=== PATIENT | male | born 1995 | race African-American/Black ===

== ENCOUNTER 2017-06-29 12:46 | Emergency (ER) | payer MEDICAID, OTHER ==
[~2017-06-29] VITALS: Ht 167.6 cm; Wt 90.0 kg
[~2017-06-29 12:46] MED LIST: ALBU8.5H3 IH; BECL8.7A6 IH; MONT10TA21 PO
[2017-06-29] MEDS ORDERED: LIDOCAINE HCL 1% 10 ML VIAL INJ ONE (13:15)
[2017-06-29 14:04] VITALS: BP 130/88
[2017-06-29] MEDS ORDERED: BACITRACIN 0.9 GM PACKET OINTMENT TP ONE (14:15)
== END 2017-06-29 14:30 | disposition home or self-care (01) ==
LOC: EMS 12:48
DX: S61.210A Laceration without foreign body of right index finger without damage to nail, initial encounter (principal); J45.909 Unspecified asthma, uncomplicated; F12.90 Cannabis use, unspecified, uncomplicated; R03.0 Elevated blood-pressure reading, without diagnosis of hypertension; Z88.5 Allergy status to narcotic agent; W45.8XXA Other foreign body or object entering through skin, initial encounter; Y93.89 Activity, other specified; Y92.89 Other specified places as the place of occurrence of the external cause; Y99.8 Other external cause status
CPT/HCPCS: 12001; 99283; J3490

== ENCOUNTER 2017-07-01 10:12 | Emergency (ER) | payer MEDICAID ==
[~2017-07-01] VITALS: Ht 167.6 cm; Wt 89.5 kg
[2017-07-01 11:11] VITALS: BP 155/111
== END 2017-07-01 11:31 | disposition home or self-care (01) ==
LOC: EMS 10:13
DX: Z48.00 Encounter for change or removal of nonsurgical wound dressing (principal); J45.909 Unspecified asthma, uncomplicated; F12.90 Cannabis use, unspecified, uncomplicated; Z88.5 Allergy status to narcotic agent
CPT/HCPCS: 99281

== ENCOUNTER 2017-07-06 08:40 | Emergency (ER) | payer MEDICAID ==
[~2017-07-06] VITALS: Ht 167.6 cm; Wt 90.9 kg
[~2017-07-06 08:40] MED LIST changes: -BECL8.7A6 IH
[2017-07-06 08:58] VITALS: BP 149/96
== END 2017-07-06 09:47 | disposition home or self-care (01) ==
LOC: EMS 08:41
DX: Z48.02 Encounter for removal of sutures (principal); S61.210D Laceration without foreign body of right index finger without damage to nail, subsequent encounter; J45.909 Unspecified asthma, uncomplicated; Z88.5 Allergy status to narcotic agent; X58.XXXD Exposure to other specified factors, subsequent encounter
CPT/HCPCS: 99281